=== PATIENT | female | born 2000 | race Hispanic/Latino ===

== ENCOUNTER 2022-10-11 19:14 | Emergency (ER) | payer OTHER ==
[~2022-10-11] VITALS: Ht 160 cm; Wt 70.0 kg
[2022-10-11] MEDS ORDERED: PREDNISONE20 MG PO (20:38)
== END 2022-10-11 20:59 | disposition home or self-care (01) ==
LOC: ED 19:14
DX: T78.1XXA Other adverse food reactions, not elsewhere classified, initial encounter (principal); L50.0 Allergic urticaria
CPT/HCPCS: 99283; J7512

== ENCOUNTER 2022-10-13 14:20 | Emergency (ER) | payer OTHER ==
[~2022-10-13] VITALS: Ht 160 cm; Wt 70.0 kg
[~2022-10-13 14:20] MED LIST: PREDNISONE20 MG PO
--- OUTSIDE RECORDS SUMMARY | 2022-10-13 15:35 | XMS ---
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 Kimberly VISIT COUNT (12 MO.) [address] [place] [address] TOTAL 2 NOTE: Visits indicate total known visits. ED/UCC VISIT TRACKING (12 MO.) 10/13/2022 14:21 [facility] TYPE: Emergency COMPLAINT: - ALLERGIC REACTION 10/11/2022 19:17 [facility] TYPE: Emergency COMPLAINT: - RASH INPATIENT VISIT TRACKING (12 MO.) 02/15/2022 20:20 [facility] [place] TYPE: Wom[facility] Services COMPLAINT: - Management of Labor and Delivery DIAGNOSES: - Management of Labor and Delivery [email or web address]
== END 2022-10-13 17:08 | disposition home or self-care (01) ==
LOC: ED 14:20
DX: L50.9 Urticaria, unspecified (principal)
CPT/HCPCS: 99283; J1100